=== PATIENT | male | born 1990 | race American Indian/Alaskan Native ===

== ENCOUNTER 2019-04-26 01:42 | Emergency (ER) | payer OTHER ==
--- NOTE | 2019-04-26 04:00 | XRay Report ---
ABDOMEN 2 VIEW(S) INDICATION / CLINICAL INFORMATION: Constipation. COMPARISON: None FINDINGS: TUBES / LINES: None. BOWEL GAS PATTERN: The bowel gas pattern appears grossly nonobstructive. There is a moderate amount o f retained stool throughout the colon and rectal vault. ADDITIONAL FINDINGS: Evaluation of bony structures demonstrates no evidence of focal acute bony abnor mality. IMPRESSION: 1. Moderate amount of retained stool throughout the colon and rectum suggesting constipation. Signer Name: Fide Marie MD Signed: 04/26/2019 3:56 AM Workstation Name: [email or web address]
--- NOTE | 2019-04-26 07:46 | Emergency Department Report ---
ED General Adult HPI - General Chief complaint: Abdominal Pain Stated complaint: HEMORRHOIDS Time Seen by Provider: 04/26/19 07:15 Source: patient Mode of arrival: Ambulatory Limitations: No Limitations - History of Present Illness Initial comments: Patient is a 28-year-old male presents emergency room with complaints of a hemorrhoid that began a week ago. He states he has also had constipation for 3 days. Patient states that he has used Preparation H and Dulcolax without much relief. He denies any hematochezia, melena, blood with wiping, pus in the stool, abdominal pain, vomiting, fever. He denies any past medical history or allergies medications. - Related Data Previous Rx's Medication Instructions Recorded Last Taken Type Ibuprofen [Motrin 400 MG tab] 400 mg PO Q8H PRN #15 tablet 04/19/19 Unknown Rx Ondansetron [Zofran Odt] 4 mg PO Q8HR PRN #12 tab.rapdis 04/19/19 Unknown Rx Docusate Sodium [Colace] 100 mg PO BID PRN #20 capsule 04/26/19 Unknown Rx Hydrocortisone [Anucort-HC SUPPOS] 25 mg RC BID PRN #14 supp.rect 04/26/19 Unknown Rx Hydrocortisone [Anusol-Hc 2.5% TOP 1 applicatio RC BID #1 cream..g. 04/26/19 Unknown Rx CREAM] Magnesium Citrate 296 ml PO ONCE PRN #1 solution 04/26/19 Unknown Rx Allergies Allergy/AdvReac Type Severity Reaction Status Date / Time No Known Allergies Allergy Unverified 04/18/19 19:46 ED Review of Systems ROS: Stated complaint: HEMORRHOIDS Other details as noted in HPI Comment: All other systems reviewed and negative ED Past Medical Hx - Past Medical History Previous Medical History?: No - Surgical History Past Surgical History?: Yes Additional Surgical History: Tonsillectomy - Social History Smoking Status: Never Smoker - Medications Home Medications: Home Medications Medication Instructions Recorded Confirmed Last Taken Type Ibuprofen [Motrin 400 MG tab] 400 mg PO Q8H PRN #15 tablet 04/19/19 Unknown Rx Ondansetron [Zofran Odt] 4 mg PO Q8HR PRN #12 tab.rapdis 04/19/19 Unknown Rx Docusate Sodium [Colace] 100 mg PO BID PRN #20 capsule 04/26/19 Unknown Rx Hydrocortisone [Anucort-HC SUPPOS] 25 mg RC BID PRN #14 supp.rect 04/26/19 Unknown Rx Hydrocortisone [Anusol-Hc 2.5% TOP 1 applicatio RC BID #1 cream..g. 04/26/19 Unknown Rx CREAM] Magnesium Citrate 296 ml PO ONCE PRN #1 solution 04/26/19 Unknown Rx ED Physical Exam - General Limitations: No Limitations General appearance: alert, in no apparent distress - Head Head exam: Present: atraumatic, normocephalic - Eye Eye exam: Present: normal appearance - ENT ENT exam: Present: mucous membranes moist - Rectal Rectal exam: Present: hemorrhoids (1 cm non thrombosed hemorrhoid present at the 12 oclock position, easily reduced, normal rectal tone, no induration, no fluctu ance, no drainage, no gross blood, substance abuse technician: yuli Polo) - Neurological Exam Neurological exam: Present: alert, oriented X3 - Psychiatric Psychiatric exam: Present: normal affect, normal mood - Skin Skin exam: Present: warm, dry, intact ED Course Vital Signs 04/26/19 04/26/19 01:49 08:03 Temperature 97.7 F 98.0 F Pulse Rate 68 68 Respiratory 18 18 Rate Blood Pressure 115/73 Blood Pressure 104/69 [Left] O2 Sat by Pulse 97 100 Oximetry ED Medical Decision Making - Radiology Data Radiology results: report reviewed ABDOMEN 2 VIEW(S) INDICATION / CLINICAL INFORMATION: Constipation. COMPARISON: None FINDINGS: TUBES / LINES: None. BOWEL GAS PATTERN: The bowel gas pattern appears grossly nonobstructive. There is a moderate amount of retained stool throughout the colon and rectal vault. ADDITIONAL FINDINGS: Evaluation of bony structures demonstrates no evidence of focal acute bony abnormality. IMPRESSION: 1. Moderate amount of retained stool throughout the colon and rectum suggesting constipation. Signer Name: Fide Marie MD Signed: 04/26/2019 3:56 AM Workstation Name: [id number] Transcribed By: EB Dictated By: Fide Marie MD Electronically Authenticated By: Fide Marie MD Signed Date/Time: 04/26/19355 DD/ 4 TD/TT: - Medical Decision Making Patient is a 28-year-old male presents emergency room with complaints of a hemorrhoid that began a week ago. He states he has also had constipation for 3 days. Patient states that he has used Preparation H and Dulcolax without much relief. He denies any hematochezia, melena, blood with wiping, pus in the stool, abdominal pain, vomiting, fever. He denies any past medical history or allergies medications. vitals are normal. on exam: 1 cm non thrombosed hemorrhoid present at the 12 oclock position, easily reduced, normal rectal tone, no induration, no fluctuance, no drainage, no gross blood, substance abuse technician: yuli Polo. abdominal XR: 1. Moderate amount of retained stool throughout the colon and rectum suggesting constipation. Will give patient prescription for Anusol, Colace, magnesium citrate. Advised patient to use medication as prescribed. Increase your water intake over the next several days. Increase your fiber intake. Follow-up with a primary care doctor in a GI doctor. Return to the emergency room for any new or worsening symptoms. - Differential Diagnosis hemorrhoids, constipation, anal fissure, abscess Critical care attestation.: If time is entered above; I have spent that time in minutes in the direct care of this critically ill patient, excluding procedure time. ED Disposition Clinical Impression: External hemorrhoid Constipation Qualifiers: Constipation type: unspecified constipation type Qualified Code(s): K59.00 - Constipation, unspecified Disposition: - TO HOME OR SELFCARE Is pt being admited?: No Does the pt Need Aspirin: No Condition: Stable Instructions: Constipation (ED), Hemorrhoids (ED), High Fiber Diet (ED) Additional Instructions: please use medication as prescribed. Increase your water intake over the next several days. Increase your fiber intake. Follow-up with a primary care doctor in a GI doctor. Return to the emergency room for any new or worsening symptoms. Prescriptions: Hydrocortisone [Anucort-HC SUPPOS] 25 mg RC BID PRN #14 supp.rect PRN Reason: hemorrhoids Hydrocortisone [Anusol-Hc 2.5% TOP CREAM] 1 applicatio RC BID #1 cream..g. Docusate Sodium [Colace] 100 mg PO BID PRN #20 capsule PRN Reason: constipation Magnesium Citrate 296 ml PO ONCE PRN #1 solution PRN Reason: constipation Referrals: [facility] [Outside] - 2-[address] [facility] [Outside] - 2-3 Days LESTER MENDOZA MD [Staff Physician] - 2-3 Days [facility] [Provider Group] - 2-3 Days Time of Disposition: 07:47 Print Language: GERMAN
[2019-04-26 08:04] VITALS: BP 104/69
== END 2019-04-26 08:05 | disposition home or self-care (01) ==
LOC: ED 01:42
DX: K64.4 Residual hemorrhoidal skin tags (principal); K59.00 Constipation, unspecified; Z90.89 Acquired absence of other organs; Z79.899 Other long term (current) drug therapy
CPT/HCPCS: 74019

== ENCOUNTER 2021-08-29 08:45 | Emergency (ER) | payer SELFPAY ==
[2021-08-29] MEDS ORDERED: CYCLOBENZAPRINE 10 MG TAB PO ONE (12:16)
[2021-08-29] MEDS ORDERED: KETOROLAC 10 MG TAB PO ONE (12:16)
--- NOTE | 2021-08-29 12:28 | Emergency Department Report ---
ED Back Pain/Injury HPI - General Chief Complaint: Back Pain/Injury Stated Complaint: BACK/NECK PAIN DRY EYE Time Seen by Provider: 08/29/21 11:58 Source: patient Limitations: No Limitations - History of Present Illness Initial Comments: 30-year-old black male with no past medical history presents to the emergency department for evaluation of 1 week history of neck and back pain along with few day history of bilateral eye redness. He denies any trauma or injury but states that he has bilateral lower back and right neck pain that is worse when he moves. He rates pain 9 out of 10. He states that he has also had bilateral redness to his eyes unrelieved by [id number] eyedrops. Complaint: back pain - Related Data Previous Rx's Medication Instructions Recorded Last Taken Type Ibuprofen [Motrin 400 MG tab] 400 mg PO Q8H PRN #15 tablet 04/19/19 Unknown Rx Ondansetron [Zofran Odt] 4 mg PO Q8HR PRN #12 tab.rapdis 04/19/19 Unknown Rx Docusate Sodium [Colace] 100 mg PO BID PRN #20 capsule 04/26/19 Unknown Rx Hydrocortisone [Anucort-HC SUPPOS] 25 mg RC BID PRN #14 supp.rect 04/26/19 Unknown Rx Hydrocortisone [Anusol-Hc 2.5% TOP 1 applicatio RC BID #1 cream..g. 04/26/19 Unknown Rx CREAM] Magnesium Citrate 296 ml PO ONCE PRN #1 solution 04/26/19 Unknown Rx Lidocaine [Lidoderm] 1 each TP DAILY #10 patch 08/29/21 Unknown Rx Naproxen [Naprosyn] 500 mg PO BID #14 tab 08/29/21 Unknown Rx Olopatadine HCl [Pataday 0.2%] 1 drop OP QDAY #1 bottle 08/29/21 Unknown Rx methOCARBAMOL [Robaxin TAB] 750 mg PO Q8H PRN #30 tab 08/29/21 Unknown Rx Allergies Allergy/AdvReac Type Severity Reaction Status Date / Time No Known Allergies Allergy Unverified 04/18/19 19:46 ED Review of Systems ROS: Stated complaint: BACK/NECK PAIN DRY EYE Other details as noted in HPI Comment: All other systems reviewed and negative Constitutional: denies: chills, fever Eyes: eye discharge. denies: eye pain, vision change ENT: denies: ear pain, congestion Respiratory: denies: cough, shortness of breath, SOB with exertion, SOB at rest, wheezing Cardiovascular: denies: chest pain, palpitations Gastrointestinal: denies: abdominal pain, nausea, vomiting, diarrhea, hematemesis, melena, hematochezia Musculoskeletal: back pain. denies: joint swelling, arthralgia, myalgia Skin: denies: rash, lesions Neurological: denies: headache, weakness, numbness, paresthesias, abnormal gait, vertigo ED Past Medical Hx - Surgical History Additional Surgical History: Tonsillectomy - Social History Smoking Status: Never Smoker Substance Use Type: None - Medications Home Medications: Home Medications Medication Instructions Recorded Confirmed Last Taken Type Ibuprofen [Motrin 400 MG tab] 400 mg PO Q8H PRN #15 tablet 04/19/19 Unknown Rx Ondansetron [Zofran Odt] 4 mg PO Q8HR PRN #12 tab.rapdis 04/19/19 Unknown Rx Docusate Sodium [Colace] 100 mg PO BID PRN #20 capsule 04/26/19 Unknown Rx Hydrocortisone [Anucort-HC SUPPOS] 25 mg RC BID PRN #14 supp.rect 04/26/19 Unknown Rx Hydrocortisone [Anusol-Hc 2.5% TOP 1 applicatio RC BID #1 cream..g. 04/26/19 Unknown Rx CREAM] Magnesium Citrate 296 ml PO ONCE PRN #1 solution 04/26/19 Unknown Rx Lidocaine [Lidoderm] 1 each TP DAILY #10 patch 08/29/21 Unknown Rx Naproxen [Naprosyn] 500 mg PO BID #14 tab 08/29/21 Unknown Rx Olopatadine HCl [Pataday 0.2%] 1 drop OP QDAY #1 bottle 08/29/21 Unknown Rx methOCARBAMOL [Robaxin TAB] 750 mg PO Q8H PRN #30 tab 08/29/21 Unknown Rx ED Physical Exam - General Limitations: No Limitations General appearance: alert, in no apparent distress - Head Head exam: Present: atraumatic, normocephalic - Eye Eye exam: Present: normal appearance, conjunctival injection. Absent: periorbital swelling, periorbital tenderness - Expanded Eye Exam Expanded Eyelids: Normal Inspection: Right Pupils: Reactive: Bilateral Sclera/Conjunctival: Injection: Bilateral - ENT ENT exam: Present: normal exam - Neck Neck exam: Present: normal inspection, tenderness (Right side only), full ROM. Absent: lymphadenopathy - Expanded Neck Exam Expanded Neck exam: Absent: midline deformity, anterior neck swelling, thyroid mass, tracheal deviation - Respiratory Respiratory exam: Present: normal lung sounds bilaterally. Absent: respiratory distress, wheezes, rales, rhonchi, stridor, chest wall tenderness - Cardiovascular Cardiovascular Exam: Present: regular rate, normal heart sounds - GI/Abdominal GI/Abdominal exam: Present: soft, normal bowel sounds. Absent: distended, tenderness, guarding, rebound, rigid - Extremities Exam Extremities exam: Present: normal inspection, normal capillary refill. Absent: pedal edema, joint swelling, calf tenderness - Back Exam Back exam: Present: normal inspection, tenderness. Absent: CVA tenderness (R), CVA tenderness (L) - Expanded Back Exam Expanded Back exam: Absent: saddle anesthesia - Neurological Exam Neurological exam: Present: alert, oriented X3, CN II-XII intact, normal gait - Psychiatric Psychiatric exam: Present: normal affect, normal mood - Skin Skin exam: Present: warm, dry, intact, normal color ED Course Vital Signs 08/29/21 08/29/21 08/29/21 09:13 12:56 13:06 Temperature 97.9 F 98.2 F Pulse Rate 64 68 Respiratory 18 174 H 18 Rate Blood Pressure 127/86 118/70 [Left] O2 Sat by Pulse 96 98 Oximetry ED Medical Decision Making - Medical Decision Making 30-year-old black male with no past medical history presents to the emergency department for evaluation of 1 week history of neck and back pain along with few day history of bilateral eye redness. He denies any trauma or injury but states that he has bilateral lower back and right neck pain that is worse when he moves. He rates pain 9 out of 10. He states that he has also had bilateral redness to his eyes unrelieved by [id number] eyedrops. Symptoms and exam consistent with musculoskeletal neck and back pain and bilateral allergic conjunctivitis. Patient will be treated with one-time dose of Toradol and Flexeril in the emergency department and discharged home with prescription for naproxen and Robaxin to take as directed for back and neck pain. He will also be given prescription for Pataday to use for allergic conjunctivitis. He is advised to take medication as prescribed and follow-up with primary care provider if no improvement or worsening symptoms. He verbalized understanding of and agreement with plan of care. Critical care attestation.: If time is entered above; I have spent that time in minutes in the direct care of this critically ill patient, excluding procedure time. ED Disposition Clinical Impression: Neck pain Back pain Qualifiers: Back pain location: low back pain Chronicity: acute Back pain laterality: bilateral Sciatica presence: without sciatica Qualified Code(s): M54.50 - Low back pain, unspecified Allergic conjunctivitis Qualifiers: Laterality: bilateral Qualified Code(s): H10.13 - Acute atopic conjunctivitis, bilateral Disposition: HOME / SELF CARE / HOMELESS Is pt being admited?: No Does the pt Need Aspirin: No Condition: Stable Instructions: Allergic Conjunctivitis, Adult, Yobw-iw-Gnal, Acute Back Pain, Adult, How to Use Eye Drops and Eye Ointments Additional Instructions: Take medications as prescribed. Follow-up with primary care provider if no improvement or worsening symptoms. Return to the emergency department as needed. Prescriptions: Lidocaine [Lidoderm] 1 each TP DAILY #10 patch Naproxen [Naprosyn] 500 mg PO BID #14 tab Olopatadine HCl [Pataday 0.2%] 1 drop OP QDAY #1 bottle methOCARBAMOL [Robaxin TAB] 750 mg PO Q8H PRN #30 tab PRN Reason: Muscle Spasm Referrals: LESTER MENDOZA MD [Primary Care Provider] - 3-5 Days Forms: Work/School Release Form(ED) Time of Disposition: 12:28
[2021-08-29 13:07] VITALS: BP 118/70
== END 2021-08-29 14:54 | disposition home or self-care (01) ==
LOC: ED 08:45
DX: M54.2 Cervicalgia (principal); M54.9 Dorsalgia, unspecified; H10.13 Acute atopic conjunctivitis, bilateral
CPT/HCPCS: 99282